=== PATIENT | male | born 1990 | race Caucasian/White ===

== ENCOUNTER 2017-05-03 00:10 | Emergency (ER) | payer OTHER ==
[~2017-05-03] VITALS: Ht 190.5 cm; Wt 105.4 kg
[2017-05-03 00:21] VITALS: TEMP 36.7; Ht 190.5 cm; Wt 105.4 kg
[2017-05-03] MEDS ORDERED: IBUP-1451 PO (00:32)
[2017-05-03] MEDS ORDERED: KETOROLAC TROMETHAMINE 60 MG/2 ML VIAL IM STA (00:51)
[2017-05-03] MEDS ORDERED: TRAMADOL HCL 50 MG HOME PACK PO ONE (02:00)
[2017-05-03 02:03] VITALS: BP 149/79; PULSE 74; O2SAT 98
--- NOTE | 2017-05-03 06:09 | EMERGENCY ROOM VISIT NOTE ---
History First contact with patient: 00:27 Chief Complaint: HIP PAIN Stated Complaint: RT SIDE/BACK PAIN,CAN'T LAY ON IT History of Present Illness The patient is a 27 year old male who presents to the Emergency Room with complaints of right hip pain that radiates to his knee for the past few days that is worse with activity and better with rest. No injury to the area. Patient's been doing a lot more walking and stair climbing. Pain currently 8 out of 10. He tried Motrin with no relief of symptoms. Patient denies back pain, loss of bowel or bladder control, saddle anesthesia, fever, chills, numbness, tingling, inability walk, IV drug abuse, injury to the area, abdominal pain, urinary symptoms. He is tolerating by mouth fluids and food. Review of Systems See HPI for pertinent positives & negatives. A total of 10 systems reviewed and were otherwise negative. Past Medical/Surgical History Medical Problems: (1) Chronic back pain Social History Smoking Status: Current Every Day Smoker Alcohol Use: occasionally Housing Status: lives alone Occupation Status: employed Current/Historical Medications Scheduled PRN Ibuprofen Tab (Motrin), 800 MG PO TID PRN for Pain Physical Exam Vital Signs Date Time Temp Pulse Resp B/P (MAP) Pulse Ox O2 Delivery O2 Flow Rate FiO2 05/03/17 02:03 74 18 149/79 98 05/03/17 00:21 36.7 80 17 135/82 97 Room Air Pain Rating (0-10): 8.0 Physical Exam VITALS: Vitals are noted on the nurse's note and reviewed by myself. Vital signs stable. GENERAL: White male pacing the room, in no acute distress, nondiaphoretic, well- developed well-nourished. SKIN: Capillary reflex less than 2 seconds. HEENT: Normocephalic. PERRLA. EOMI. Nares patent. Mucous membranes moist. Neck is supple without nuchal rigidity. HEART: Regular rate and rhythm without murmurs gallops or rubs. LUNGS: Clear to auscultation bilaterally without wheezes, rales or rhonchi. No retractions or accessory muscle use. ABDOMEN: Positive bowel sounds x 4. Normal tympanic percussion. Soft, nontender, without masses or organomegaly. Banks sign negative. No guarding or rebound tenderness. MUSCULOSKELETAL: No gross musculoskeletal defects. No pedal edema. No calf tenderness. No thoracic or lumbar tenderness on exam, right lateral hip over the IT insertion site and tender to palpation and tender along the IT band to the insertion site at the knee. Palpation does easily reproduced his symptoms. Patient had a negative straight leg raise. Patellar reflexes +2 equal present bilaterally. Increased pain with range of motion of the hip. Patient can ambulate without difficulties. NEURO: Patient was alert and oriented to person place and time. Normal sensation to light and sharp touch. No focal neurological deficits. Medical Decision & Procedures Medications Administered Medications (Trade) Dose Ordered Sig/Javier Route Start Time Stop Time Status Last Admin Dose Admin Ketorolac Tromethamine (Toradol Inj) 60 mg NOW STAT IM 05/03/17 00:51 05/03/17 00:52 DC 05/03/17 01:07 60 MG Tramadol HCl (Ultram Home Pack) 1 homepack UD ONCE PO 05/03/17 02:00 05/03/17 02:01 DC 05/03/17 02:03 1 HOMEPACK ED Course Prior records/ancillary studies reviewed. Triage Nursing notes reviewed. The patient's history was concerning for right hip pain down to knee Differential diagnosis: Etiologies such as IT band syndrome, musculoskeletal, disc herniation, fracture , metastatic disease, cord compression, discitis, infection, renal colic, gastrointestinal, acute exacerbation of chronic back pain, sciatica, cauda equina, as well as others were entertained. Physical findings: As above. No focal neurologic findings noted. ER treatment provided: Toradol, home pack Ultram On reassessment the patient felt better. Diagnostics interpreted by me: Imaging studies: Right hip x-ray with no acute fracture or dislocation or effusion per my interpretation This appears to be consistent with see band syndrome. Patient was shown exercises to stretch the area out. He was neurovascularly neurologic intact. He was well-appearing. He was informed to take Motrin Tylenol for the pain and then started demanded something stronger for his pain. He was not forthcoming about his BUPRENORPHINE. He was informed to get a home pack Ultram without is at. He then started yelling and screaming at the nurse for narcotics. He was informed to see his family care doctor or orthopedics for further evaluation and treatment. The patient's physical examination and detailed history did not reveal any red flags for right hip pain such as those listed in the differential diagnosis. Therefore advanced diagnostics and consultations were felt to be unwarranted. By the evaluation outlined above emergent etiologies such as fracture, aortic disease, metastatic disease, infection, renal colic, gastrointestinal, cord compression, cauda equina, as well as others were deemed relatively unlikely. The pt informed about the findings as listed above. All questions were answered and pleased with the treatment. Return instructions were outlined and the patient was discharged in stable condition. Outpatient prescription management: Home pack Ultram Referral: The patient was referred back to orthopedics and/or primary care physician for follow-up in 2 to 3 days for a recheck of the current condition. Medical Decision As above [place] Drug Monitoring Program Search Results: patient reviewed within database, see additional documentation (patient receives BUPRENORPHINE ) Medication Reconcilliation Current Medication List: was personally reviewed by me Blood Pressure Screening Patient's blood pressure: Normal blood pressure Impression Primary Impression: IT band syndrome Departure Information Dispostion Home / Self-Care Condition GOOD Forms WORK / SCHOOL INSTRUCTIONS, HOME CARE DOCUMENTATION FORM, IMPORTANT VISIT INFORMATION Patient Instructions IT Band Syndrome About, IT Band Syndrome Tx, My [facility] Additional Instructions Stretch your leg out as shown in the ER. Ibuprofen(Motrin, Advil) may be used for fever or pain. Use 600mg every six hours as needed. Take with food. Avoid using more than 2400mg in a 24 hour period. Do not use 2400mg per day for more than three consecutive days without physician direction. Prolonged inappropriate use can lead to stomach upset or ulcers. This medication can be taken if you need to drive, work, or perform activities which may be dangerous when taking narcotic pain medication. (AND/OR) Acetaminophen(Tylenol) may be used for fever or pain. Use 1000mg every six hours as needed. Avoid using more than 3000mg in a 24 hour period. This medication can be taken if you need to drive, work, or perform activities which may be dangerous when taking narcotic pain medication. Rest and avoid heavy lifting until your symptoms resolve and then gradually return to full activity. A good rule of thumb is if it hurts your leg to perform a certain activity, then it should be avoided until you are healthy again. A heating pad, warm compresses, or a hot shower may help with tight muscles and can be done several times a day as needed. Continue current medications. Return to the ER immediately for any numbness, tingling, severe pain, loss of control of your bowels or bladder, inability to walk, or as needed. Follow up with your primary care physician or Orthopedics within 3-5 days for a recheck of your current condition. Problem Qualifiers Primary Impression: IT band syndrome Laterality: right Qualified Codes: M76.31 - Iliotibial band syndrome, right leg
--- NOTE | 2017-05-03 07:42 | DIAGNOSTIC IMAGING REPORT ---
RIGHT HIP UNILATERAL 2 VIEWS CLINICAL HISTORY: Right hip pain. COMPARISON: None FINDINGS: Alignment of the right hip is anatomic. No fracture or suspicious lesion is present. There is no evidence for avascular necrosis of the right femoral head. There may be minimal superior joint space narrowing. IMPRESSION: 1. No acute fracture. 2. Minimal superior joint space narrowing of the right hip. Electronically signed by: Paramjit Quintanilla M.D. 05/03/2017 7:40 AM Dictated Date/Time: 05/03/2017 7:40 AM
== END 2017-05-03 02:03 | disposition home or self-care (01) ==
LOC: C.EDB 00:12 → C.EDC 02:03
DX: M76.31 Iliotibial band syndrome, right leg (principal); F17.200 Nicotine dependence, unspecified, uncomplicated